=== PATIENT | female | born 1950 | race Caucasian/White ===

== ENCOUNTER → 2018-01-25 | Outpatient (CLI) | payer MEDICARE, BC | LOC: M WUC 09:52 | DX: M25.562 Pain in left knee (principal); Z96.652 Presence of left artificial knee joint | CPT/HCPCS: 73564 ==

== ENCOUNTER → 2018-05-31 | Outpatient (REF) | payer MEDICARE, BC ==
[2018-05-31 20:17] LABS: APPEARANCE, URINE CLOUDY (CLEAR); BACTERIA, URINE AUTO 1+ (NEGATIVE); BILIRUBIN, URINE AUTO NEGATIVE (NEGATIVE); BLOOD, URINE BLOOD NEGATIVE (NEGATIVE); COLOR, URINE YELLOW (YELLOW); GLUCOSE, URINE (UA) AUTO NEGATIVE (NEGATIVE); KETONE, URINE AUTO NEGATIVE (NEGATIVE); LEUKOCYTE ESTERASE, URINE AUTO TRACE (NEGATIVE); MUCUS, URINE SMALL (NEGATIVE); NITRITE, URINE AUTO NEGATIVE (NEGATIVE); PROTEIN, URINE AUTO NEGATIVE (NEGATIVE); RBC, URINE AUTO 3 /HPF (0-3); SPECIFIC GRAVITY URINE AUTO 1.023 (1.002-1.035); SQUAMOUS EPITHELIAL CELL UR AU 20 /HPF (0-6); UROBILINOGEN, URINE AUTO 0.2 mg/dL (0.0-2.0); WBC, URINE AUTO 5 /HPF (0-3)
[2018-05-31 20:27] LABS: ALBUMIN 4.1 GM/DL (3.2-5.2); ALT/SGPT 35 U/L (12-78); BASO % 0.5 % (0.0-1.0); BILIRUBIN,TOTAL 0.5 MG/DL (0.2-1.0); BLOOD UREA NITROGEN 20 MG/DL (7-18); CALCIUM LEVEL 9.6 MG/DL (8.8-10.2); CARBON DIOXIDE LEVEL 31 MEQ/L (21-32); CHLORIDE LEVEL 105 MEQ/L (98-107); CHOLESTEROL LEVEL 228 MG/DL (<200); CHOLESTEROL RISK RATIO 3.454 (<5); CREATININE FOR GFR 0.68 MG/DL (0.55-1.30); EOS # 0.1 10^3/uL (0.0-0.50); EOS % 1.5 % (0.0-3.0); GLOMERULAR FILTRATION RATE > 60.0 (>45); GLUCOSE, FASTING 83 MG/DL (70-100); HDL CHOLESTEROL 66 MG/DL (>40); HEMATOCRIT 47.2 % (36.0-47.0); HEMOGLOBIN 15.3 g/dl (12.0-15.5); LDL CHOLESTEROL 135 MG/DL (<100); LYMPH # 2.1 10^3/uL (1.5-4.5); LYMPH % 24.9 % (24.0-44.0); MEAN CORPUSCULAR HEMOGLOBIN 29.1 pg (27.0-33.0); MEAN CORPUSCULAR HGB CONC 32.4 g/dl (32.0-36.5); MEAN CORPUSCULAR VOLUME 89.9 fl (80.0-96.0); MONO # 0.9 10^3/uL (0.0-0.8); NEUTROPHILS # 5.3 10^3/uL (1.8-7.7); NEUTROPHILS % 62.9 % (36.0-66.0); NON-HDL-C 162 MG/DL; PLATELET COUNT, AUTOMATED 181 10^3/uL (150-450); POTASSIUM SERUM 4.8 MEQ/L (3.5-5.1); RED BLOOD COUNT 5.25 10^6/uL (4.00-5.40); SODIUM LEVEL 142 MEQ/L (136-145); TOTAL PROTEIN 7.4 GM/DL (6.4-8.2); TRIGLYCERIDES LEVEL 137 MG/DL (<150); WHITE BLOOD COUNT 8.5 10^3/uL (4.0-10.0)
[2018-05-31 20:44] LABS: HEMOGLOBIN A1c 5.3 %
== END ==
LOC: M SFHCLERA 12:46
PROVIDERS: ATTEND Family Medicine
DX: I10 Essential (primary) hypertension (principal); M54.31 Sciatica, right side; M06.9 Rheumatoid arthritis, unspecified; Z13.820 Encounter for screening for osteoporosis; Z23 Encounter for immunization
CPT/HCPCS: 80053; 80061; 81001; 83036; 84443; 85025; G0463

== ENCOUNTER → 2018-07-14 | Outpatient (CLI) | payer MEDICARE, BC ==
--- NOTE | 2018-07-15 10:03 | ECHO ---
DATE OF PROCEDURE: 07/14/2018 DATE OF : 1950 AGE: 67 REFERRING PROVIDER: Misha Londono MD REASON FOR THE ECHOCARDIOGRAM: Heart murmur. 2D MEASUREMENTS: IVS: 1.0 cm LV: 4.5 cm LVPW: 1.0 cm LA: 3.4 cm Aorta: 3.2 cm IVC: 1.8 cm DOPPLER MEASUREMENTS: Peak velocity across the aortic valve: 2.0 m/s Peak velocity across the LVOT: 1.0 m/s Peak gradient across the aortic valve: 17 mmHg. Mean gradient across the aortic valve: 9 mmHg Mitral E: 0.84, mitral A: 1.1 with a ratio of 0.8. Maximum tricuspid valve velocity: 2.4 m/s 2D COMMENTS: 1. Normal left ventricular size, wall thickness, and normal global left ventricular systolic function. The estimated left ventricular systolic ejection fraction is 65-70%. 2. Subjectively, the left atrium may be mildly enlarged. Normal right atrium and right ventricle. 3. The atrial septum appeared to be normal without evidence of defect or shunt. 4. Normal aortic root. 5. No pericardial effusion seen. 6. Mildly calcified aortic valve, leaflet excursion appeared to be minimally restricted. Mildly calcified mitral annulus with normal anterior mitral valve leaflet motion. Normal tricuspid valve and pulmonic valve. The proximal pulmonary artery branches were not well visualized. 7. The inferior vena cava was normal in size, central venous pressure is most likely normal. DOPPLER: It detects mild aortic regurgitation, mild mitral regurgitation, mild tricuspid regurgitation, and trace pulmonic regurgitation. The calculated pulmonary artery systolic pressure varies between 30-40 mmHg. Abnormal relaxation pattern noted across the mitral valve leaflets and mitral valve annulus consistent with features of left ventricular diastolic dysfunction, grade 1. IMPRESSION: 1. Normal global left ventricular systolic function. There are some features of left ventricular diastolic dysfunction, impaired relaxation. 2. Aortic valve sclerosis with mild aortic regurgitation and probably mild aortic stenosis. The patient does have a history of bicuspid aortic valve according to her records. 3. Mild tricuspid regurgitation with mitral annulus calcification. Subjectively, the left atrium appeared to be mildly enlarged. 4. Mild tricuspid regurgitation with mild pulmonary hypertension. 5. Trace pulmonic regurgitation.
== END ==
LOC: M CARPUL 09:24
PROVIDERS: ATTEND Family Medicine
DX: I51.7 Cardiomegaly (principal)

== ENCOUNTER → 2018-09-14 | Outpatient (CLI) | payer MEDICARE, BC ==
--- NOTE | 2018-09-14 10:49 | REPMRS ---
Patient History The patient states she has not had a clinical breast exam in over a year. Patient is postmenopausal. Family history of breast cancer under age 50 in maternal grandmother. Digital Woman Screen Mammo: September 14, 2018 - Exam #: [id number] Bilateral CC and MLO view(s) were taken. Technologist: Brisa Kinney Technologist Prior study comparison: November 21, 2015, bilateral digital woman screen mammo, performed at [facility]. FINDINGS: There are scattered fibroglandular densities. There are new coarse benign appearing calcifications in the upper outer quadrant on the right. There is also a grouping of new fine microcalcifications in the upper outer quadrant on the right which merits further evaluation. This is only seen on the craniocaudad projection of the right breast. They are not seen with confidence tomographically. Diagnostic right breast mammography is recommended. There has been no other change in the appearance of the mammogram from the prior studies. There is a mild amount of scattered fibroglandular density which is fairly symmetric. There is no interval development of dominant mass, architectural distortion, or other clustered microcalcification suggestive of malignancy. 3-D tomosynthesis shows no additional findings. Assessment: BI-RADS/ACR category 0 mammogram, Incomplete: Need additional imaging evaluation and/or prior mammograms for comparison. Recommendation Special view mammogram of the right breast. This patient's Lifetime Breast Cancer RIsk is estimated at 7.4 %. This mammogram was interpreted with the aid of an FDA-approved computer-aided dectection system. Electronically Signed By: Warren Salomon MD 09/14/18 [id number]
== END ==
LOC: M WHC 08:12
PROVIDERS: ATTEND Family Medicine
DX: Z12.31 Encounter for screening mammogram for malignant neoplasm of breast (principal); Z78.0 Asymptomatic menopausal state; R92.8 Other abnormal and inconclusive findings on diagnostic imaging of breast

== ENCOUNTER 2018-09-20 12:54 | Outpatient (RCR) | payer MEDICARE, BC | END 2018-09-24 | LOC: M PT 12:54 | PROVIDERS: ATTEND Family Medicine | DX: M54.31 Sciatica, right side (principal) ==

== ENCOUNTER → 2018-09-20 | Outpatient (CLI) | payer MEDICARE, BC ==
--- NOTE | 2018-09-20 16:33 | REP ---
DIGITAL DIAGNOSTIC UNILATERAL RIGHT BREAST MAMMOGRAPHY WITH CAD: HISTORY: Screening mammography September 14, 2018 was BIRADS category 0 because of some new fine microcalcifications visible on the craniocaudad projection. Diagnostic imaging was recommended. Comparison is also made with prior mammography from November 21, 2015 and September 24, 2009. FINDINGS: Magnified focal spot compression craniocaudad view confirms the presence of fine punctate microcalcifications in the right breast laterally. On true mediolateral projection images and MLO mag images, these are seen to be in a small artery superficially located in the superior aspect of the left breast. Given that they appear to be vascular in nature, they are felt to be benign. No other suspicious abnormality. IMPRESSION: BIRADS 2: BI-RADS/ACR category 2 mammogram. Benign Findings. BIRADS category 2 benign findings. Vascular calcifications noted superiorly and laterally in the right breast. Repeat screening mammography recommended in 1 year. This mammogram was interpreted with the aid of an FDA-approved computer-aided detection system. The patient states that she/he has not had a clinical breast exam in over a year. The patient letter being requested is M1. Electronically Signed by Hermilo Salomon MD 09/20/2018 04:32 P
== END ==
LOC: M RAD 11:11
PROVIDERS: ATTEND Family Medicine
DX: R92.8 Other abnormal and inconclusive findings on diagnostic imaging of breast (principal)

== ENCOUNTER 2018-10-13 08:16 | Day surgery (SDC) | payer MEDICARE, BC ==
[~2018-10-13] VITALS: Ht 170.2 cm; Wt 101.1 kg
[~2018-10-13 08:16] MED LIST: CETI-36 PO; CYCL10TA PO; FOLI1TAB11 PO; HYDR200T3 PO; INDE60CA4 PO; LISI-542 PO; NABU-126 PO; NORC1TAB7 PO; NS 1,000 ML IV ONE; VITA-176 PO
[2018-10-13] MEDS ORDERED: LIDOCAINE 2% INJ 100 MG/5 ML SDV (FOR ANES.) As Ordered ONE (09:34)
[2018-10-13] MEDS ORDERED: PROPOFOL 200 MG/20 ML VIAL As Ordered ONE ×2 (09:34→09:35)
--- NOTE | 2018-10-13 09:41 | ROOR ---
Patient Name: Cris Hernandez Procedure Date: 10/13/2018 9:06 AM Date of : 1950 Age: 68 Room: [facility] Gender: Female Note Status: Finalized Procedure: Colonoscopy Indications: Hematochezia, Abnormal CT of the GI tract ("colitis") 2018, Constipation Providers: Rickey STALLINGS MD Referring MD: Misha COLE MD Requesting Provider: Medicines: Monitored Anesthesia Care Complications: No immediate complications. Procedure: Pre-Anesthesia Assessment: - The heart rate, respiratory rate, oxygen saturations, blood pressure, adequacy of pulmonary ventilation, and response to care were monitored throughout the procedure. The Colonoscope was introduced through the anus and advanced to 10 cm into the ileum. The colonoscopy was performed without difficulty. The patient tolerated the procedure well. The quality of the bowel preparation was good. Findings: The perianal and digital rectal examinations were normal. A 4 mm polyp was found in the splenic flexure. The polyp was sessile. The polyp was removed with a cold snare. Resection and retrieval were complete. Mild sigmoid diverticulosis and small internal hemorrhoids. The exam was otherwise normal throughout the examined colon. The terminal ileum appeared normal. The colon (entire examined portion) was mildly redundant. Biopsies were taken with a cold forceps for histology. Impression: - One 4 mm polyp at the splenic flexure, removed with a cold snare. Resected and retrieved. - Mild sigmoid diverticulosis and small internal hemorrhoids. - The colon is otherwise normal. - The examined portion of the ileum was normal. - Biopsies were taken with a cold forceps for histology. Recommendation: - Use Lactulose at 1 - 2 tbsp daily. - Telephone endoscopist for pathology results in 2 weeks. - If the pathology report reveals adenomatous tissue, then repeat the colonoscopy for surveillance in 5 years. Rickey Stallings MD Rickey STALLINGS MD 10/13/2018 9:40:58 AM Electronically signed by Rickey STALLINGS MD Number of Addenda: 0 Note Initiated On: 10/13/2018 9:06 AM Estimated Blood Loss: Estimated blood loss: none.
[2018-10-13 09:58] VITALS: BP 148/69
== END 2018-10-13 10:05 | disposition home or self-care (01) ==
LOC: M OPP 08:16
PROVIDERS: ATTEND Internal Medicine Gastroenterology
DX: D12.3 Benign neoplasm of transverse colon (principal); K92.1 Melena; K59.00 Constipation, unspecified; Q43.8 Other specified congenital malformations of intestine; R93.3 Abnormal findings on diagnostic imaging of other parts of digestive tract; Z79.899 Other long term (current) drug therapy; Z88.0 Allergy status to penicillin

== ENCOUNTER → 2018-10-31 | Outpatient (REF) | payer MEDICARE, BC ==
[~2018-10-31] MED LIST changes: -NS 1,000 ML IV ONE
== END ==
LOC: M SFHCLERA 10:57
PROVIDERS: ATTEND Family Medicine
DX: Z86.39 Personal history of other endocrine, nutritional and metabolic disease (principal)
CPT/HCPCS: 82306; G0463

== ENCOUNTER → 2018-11-14 | Outpatient (CLI) | payer MEDICARE, BC ==
--- NOTE | 2018-11-14 16:35 | REP ---
HISTORY: Hip pain. No trauma. There is mild to moderate asymmetric hip joint space narrowing without buttressing or prominent marginal osteophytosis. There is no acute fracture or dislocation. IMPRESSION: Chronic changes as described above. Electronically Signed by Yoshi Aceves DO 11/14/2018 04:37 P
== END ==
LOC: M LRY 15:10
PROVIDERS: ATTEND Family Medicine
DX: M16.11 Unilateral primary osteoarthritis, right hip (principal); M25.551 Pain in right hip
CPT/HCPCS: 73502; G0463

== ENCOUNTER → 2018-12-20 | Outpatient (REF) | payer MEDICARE, BC ==
[2018-12-20 17:16] LABS: APPEARANCE, URINE HAZY (CLEAR); BACTERIA, URINE AUTO NEGATIVE (NEGATIVE); BILIRUBIN, URINE AUTO NEGATIVE (NEGATIVE); BLOOD, URINE BLOOD NEGATIVE (NEGATIVE); COLOR, URINE YELLOW (YELLOW); GLUCOSE, URINE (UA) AUTO NEGATIVE (NEGATIVE); KETONE, URINE AUTO NEGATIVE (NEGATIVE); LEUKOCYTE ESTERASE, URINE AUTO NEGATIVE (NEGATIVE); MUCUS, URINE SMALL (NEGATIVE); NITRITE, URINE AUTO NEGATIVE (NEGATIVE); PROTEIN, URINE AUTO NEGATIVE (NEGATIVE); RBC, URINE AUTO 3 /HPF (0-3); SPECIFIC GRAVITY URINE AUTO 1.019 (1.002-1.035); SQUAMOUS EPITHELIAL CELL UR AU 4 /HPF (0-6); UROBILINOGEN, URINE AUTO 0.2 mg/dL (0.0-2.0); WBC, URINE AUTO 3 /HPF (0-3)
[2018-12-22 14:22] LABS: HPV HYBRID CAPTURE II Negative (Negative)
== END ==
LOC: M SFHCLERA 13:30
PROVIDERS: ATTEND Family Medicine
DX: Z12.4 Encounter for screening for malignant neoplasm of cervix (principal); N93.9 Abnormal uterine and vaginal bleeding, unspecified; N76.0 Acute vaginitis
CPT/HCPCS: 81001; 87086; 87624; G0123; G0463

== ENCOUNTER → 2018-12-28 | Outpatient (CLI) | payer MEDICARE, BC ==
--- NOTE | 2018-12-28 18:55 | REP ---
Inguinal ultrasound for right inguinal pain: The right inguinal area is evaluated by ultrasound without and with Valsalva. No right inguinal hernia is identified. There are multiple right inguinal lymph nodes. The left inguinal area is evaluated for comparison. With Valsalva, there is a small volume of peritoneal fat herniating the left inguinal canal. Next no lymph nodes are identified on the left. Impression: The there is no inguinal hernia on the right. There are multiple right inguinal lymph nodes. There is a fat-containing left inguinal hernia with Valsalva. Electronically Signed by Misha aGmbino MD 12/28/2018 06:46 P
== END ==
LOC: M RAD 16:49
PROVIDERS: ATTEND Family Medicine
DX: R10.31 Right lower quadrant pain (principal); K40.90 Unilateral inguinal hernia, without obstruction or gangrene, not specified as recurrent

== ENCOUNTER → 2019-01-02 | Outpatient (REF) | payer MEDICARE, BC ==
[2019-01-02 20:41] LABS: BASO % 0.2 % (0.0-1.0); EOS # 0.1 10^3/uL (0.0-0.5); HEMATOCRIT 44.4 % (36.0-47.0); HEMOGLOBIN 14.4 g/dl (12.0-15.5); MEAN CORPUSCULAR HEMOGLOBIN 29.6 pg (27.0-33.0); MEAN CORPUSCULAR HGB CONC 32.4 g/dl (32.0-36.5); MEAN CORPUSCULAR VOLUME 91.4 fl (80.0-96.0); MONO # 0.9 10^3/uL (0.0-0.8); MONO % 10.6 % (0.0-5.0); NEUTROPHILS # 4.6 10^3/uL (1.5-8.5); NEUTROPHILS % 52.7 % (36.0-66.0); PLATELET COUNT, AUTOMATED 174 10^3/uL (150-450); RED BLOOD COUNT 4.86 10^6/uL (4.00-5.40); WHITE BLOOD COUNT 8.7 10^3/uL (4.0-10.0)
== END ==
LOC: M SFHCLERA 15:54
PROVIDERS: ATTEND Family Medicine
DX: R59.0 Localized enlarged lymph nodes (principal)
CPT/HCPCS: 85025; G0463

== ENCOUNTER → 2019-01-09 | Outpatient (REF) | payer MEDICARE, BC ==
[2019-01-09 17:21] LABS: BLOOD UREA NITROGEN 20 MG/DL (7-18); C REACTIVE PROTEIN QUANTITATIV 0.61 MG/DL (0.00-0.30); CREATININE FOR GFR 0.57 MG/DL (0.55-1.30); GLOMERULAR FILTRATION RATE > 60.0 (>45)
== END ==
LOC: M LABDRAW1 14:43
PROVIDERS: ATTEND Physician Assistant
DX: M47.817 Spondylosis without myelopathy or radiculopathy, lumbosacral region (principal)

== ENCOUNTER → 2019-01-26 | Outpatient (CLI) | payer MEDICARE, BC ==
--- NOTE | 2019-01-26 15:30 | REP ---
Clinical: Pelvic pain and inguinal adenopathy. Technique: Transabdominal pelvic ultrasound followed by transvaginal examination for better evaluation of the endometrium and adnexa with color Doppler evaluation of the ovaries. Findings: Bladder is normal and measures 12.9 x 7.8 x 8.9 cm. Normal anteverted uterus measures 8.4 x 3.4 x 5.9 cm. Endometrial complex measures 7.2 mm thickness. No discrete uterine or endometrial abnormalities appreciated. Right ovary is normal in appearance and vascularity without torsion and measures 1.6 x 2.2 x 1.6 cm (RI 0.30). Left ovary is not definitively appreciated. No pelvic fluid or adnexal mass lesion. Impression: 1. Mildly thickened endometrial complex without discrete uterine or endometrial abnormality appreciated. 2. Normal right ovary. Left ovary not visualized. 3. No obvious abnormality identified. Electronically Signed by Fili Hatch MD 01/26/2019 03:21 P
== END ==
LOC: M LRY 13:54
PROVIDERS: ATTEND Family Medicine
DX: R59.0 Localized enlarged lymph nodes (principal)

== ENCOUNTER → 2019-04-10 | Outpatient (REF) | payer MEDICARE, BC ==
[2019-04-10 20:49] LABS: BASO # 0.1 10^3/uL (0.0-0.2); BASO % 0.8 % (0.0-1.0); EOS # 0.2 10^3/uL (0.0-0.5); EOS % 2.5 % (0.0-3.0); HEMATOCRIT 43.5 % (36.0-47.0); HEMOGLOBIN 13.9 g/dl (12.0-15.5); LYMPH # 1.8 10^3/uL (1.5-5.0); LYMPH % 28.2 % (24.0-44.0); MONO # 0.6 10^3/uL (0.0-0.8); MONO % 9.9 % (0.0-5.0); NEUTROPHILS # 3.7 10^3/uL (1.5-8.5); NEUTROPHILS % 58.4 % (36.0-66.0); PLATELET COUNT, AUTOMATED 165 10^3/uL (150-450); RED BLOOD COUNT 4.63 10^6/uL (4.00-5.40); WHITE BLOOD COUNT 6.4 10^3/uL (4.0-10.0)
[2019-04-10 20:58] LABS: BLOOD UREA NITROGEN 24 MG/DL (7-18); CARBON DIOXIDE LEVEL 32 MEQ/L (21-32); CHLORIDE LEVEL 104 MEQ/L (98-107); CHOLESTEROL LEVEL 228 MG/DL (<200); CHOLESTEROL RISK RATIO 2.814 (<5); CREATININE FOR GFR 0.75 MG/DL (0.55-1.30); GLOMERULAR FILTRATION RATE > 60.0 (>45); GLUCOSE, FASTING 74 MG/DL (70-100); HDL CHOLESTEROL 81 MG/DL (>40); LDL CHOLESTEROL 125 MG/DL (<100); NON-HDL-C 147 MG/DL; POTASSIUM SERUM 4.1 MEQ/L (3.5-5.1); SODIUM LEVEL 141 MEQ/L (136-145); TRIGLYCERIDES LEVEL 111 MG/DL (<150)
[2019-04-10 21:06] LABS: INR 1.01
[2019-04-10 21:07] LABS: PARTIAL THROMBOPLASTIN TIME 29.4 SECONDS (25.0-38.4)
== END ==
LOC: M SFHCLERA 16:59
PROVIDERS: ATTEND Family Medicine
DX: I10 Essential (primary) hypertension (principal); Q23.1 Congenital insufficiency of aortic valve
CPT/HCPCS: 80048; 80061; 85025; 85610; 85730; G0463

== ENCOUNTER → 2019-05-01 | Outpatient (CLI) | payer MEDICARE, BC ==
[2019-05-01 16:40] LABS: BLOOD UREA NITROGEN 26 MG/DL (7-18); CREATININE FOR GFR 0.63 MG/DL (0.55-1.30); GLOMERULAR FILTRATION RATE > 60.0 (>45)
== END ==
LOC: M LAB 15:10
PROVIDERS: ATTEND Surgery Vascular Surgery
DX: Z01.818 Encounter for other preprocedural examination (principal); Z79.899 Other long term (current) drug therapy
CPT/HCPCS: 36415; 82565; 84520; G0463

== ENCOUNTER → 2019-05-09 | Outpatient (CLI) | payer MEDICARE, BC ==
[~2019-05-09] MED LIST changes: +ISOVUE-370 76% 100ML VIAL (Q9967) As Ordered ONE
--- NOTE | 2019-05-09 14:23 | REP ---
Clinical: Atherosclerotic disease. Technique: Contrast enhanced angiographic CTA of the thoracic aorta using 100 ml Isovue 370 intravenous contrast material. Multiplanar re-formations obtained. Findings: The thoracic aorta is normal in caliber and appearance without evidence for thoracic aortic aneurysm or dissection and no significant atherosclerotic disease. The associated major branch vessels of the aortic arch are normal. Main pulmonary arteries appear normal. Heart and pericardium are unremarkable. No pericardial effusion. Mild atherosclerotic changes to the coronary arteries cannot be excluded. No mediastinal or hilar adenopathy. Bilateral lung doe are relatively clear. Small calcified granuloma in the right upper lobe noted. Surrounding musculoskeletal structures demonstrate age-related changes without acute focal abnormality. Impression: 1. Normal appearance to the thoracic aorta and major branch vessels through the aortic arch. No aneurysm or dissection. No significant atherosclerotic changes. 2. Atherosclerotic changes to the coronary arteries cannot definitively be excluded based on current examination. Electronically Signed by Fili Hatch MD 05/09/2019 02:15 P
--- NOTE | 2019-05-09 14:34 | REP ---
Clinical: Peripheral vascular disease. Technique: Standard CTA examination of the abdomen through bilateral lower extremities using 100 ml Isovue 370 intravenous contrast material with multiplanar MIP re-formations and reconstructions including volume rendered 3-D MIP angiograms of the lower extremities. Findings: The abdominal aorta is normal in appearance without aneurysm or dissection and no significant atherosclerotic disease. The associated branch vessels of the abdominal aorta including celiac axis, superior mesenteric artery, solitary bilateral renal arteries, and inferior mesenteric artery are all normal in appearance. The aorta bifurcates to normal bilateral iliac arteries and the bilateral lower extremity arteries are all symmetric and patent with three-vessel runoff through the bilateral lower extremities to the level of the ankles. Liver, spleen, pancreas, bilateral adrenal glands and kidneys are normal for arterial angiographic phase evaluation. Cholelithiasis noted without evidence for acute cholecystitis. The enteric system is unremarkable. Scattered sigmoid diverticula noted without acute diverticulitis. Pelvis demonstrates normal appearing bladder and age-appropriate uterus/adnexa. No ascites. No adenopathy. No free air. Musculoskeletal structures demonstrate age-related degenerative changes without acute focal abnormality. Impression: 1. No evidence for atherosclerotic disease and no evidence for peripheral vascular disease. The aorta and branch vessels as well as the arterial vessels to the bilateral lower extremities appear patent and normal. 2. Cholelithiasis without acute cholecystitis. 3. Scattered sigmoid diverticula without acute diverticulitis. Electronically Signed by Fili Hatch MD 05/09/2019 02:26 P
== END ==
LOC: M RAD 09:34
PROVIDERS: ATTEND Surgery Vascular Surgery
DX: I73.9 Peripheral vascular disease, unspecified (principal)
CPT/HCPCS: 71275; 75635; Q9967

== ENCOUNTER → 2019-09-06 | Outpatient (CLI) | payer MEDICARE, BC ==
[~2019-09-06] MED LIST changes: +CYCL-707 PO; -CYCL10TA PO; -ISOVUE-370 76% 100ML VIAL (Q9967) As Ordered ONE
--- NOTE | 2019-09-06 15:07 | REP ---
REASON FOR EXAM: Hyperemia and erythema with varying degrees of ecchymosis. RIGHT: The ankle brachial index is 1.0. COCOA BEAN ROASTER 127 cm/s Triphasic Profunda 64 cm/s Triphasic SFA proximal 84 cm/s Triphasic SFA mid 67 cm/s Triphasic SFA distal 65 cm/s Triphasic Popliteal 87 cm/s Triphasic AMADOU proximal 50 cm/s Triphasic Tibioperoneal Trunk 57 cm/s Triphasic CLINICAL NURSING ASSISTANT proximal 38 cm/s Triphasic CLINICAL NURSING ASSISTANT distal 61 cm/s Triphasic AMADOU distal 71 cm/s Triphasic LEFT: The ankle brachial index is 1.0. COCOA BEAN ROASTER 88 cm/s Triphasic Profunda 59 cm/s Triphasic SFA proximal 100 cm/s Triphasic SFA mid 72 cm/s Triphasic SFA distal 70 cm/s Triphasic Popliteal 71 cm/s Triphasic AMADOU proximal 64 cm/s Triphasic Tibioperoneal Trunk 48 cm/s Triphasic CLINICAL NURSING ASSISTANT proximal 42 cm/s Triphasic CLINICAL NURSING ASSISTANT distal 72 cm/s Triphasic AMADOU distal 76 cm/s Triphasic The technologist noted minimal intimal thickening throughout. There is no significant stenosis. Electronically Signed by Yoshi Aceves DO 09/06/2019 05:05 P
== END ==
LOC: M RAD 11:47
PROVIDERS: ATTEND Physician Assistant
DX: R09.89 Other specified symptoms and signs involving the circulatory and respiratory systems (principal); I75.023 Atheroembolism of bilateral lower extremities

== ENCOUNTER → 2019-11-20 | Outpatient (REF) | payer MEDICARE, BC ==
[~2019-11-20] MED LIST changes: -NABU-126 PO; +NABU-51 PO
[2019-11-20 17:05] LABS: BASO # 0.1 10^3/uL (0.0-0.2); BASO % 0.6 % (0.0-1.0); EOS # 0.2 10^3/uL (0.0-0.5); EOS % 2.5 % (0.0-3.0); HEMATOCRIT 45.8 % (36.0-47.0); HEMOGLOBIN 15.3 g/dl (12.0-15.5); LYMPH # 2.9 10^3/uL (1.5-5.0); LYMPH % 34.7 % (24.0-44.0); MEAN CORPUSCULAR HEMOGLOBIN 30.3 pg (27.0-33.0); MEAN CORPUSCULAR HGB CONC 33.4 g/dl (32.0-36.5); MEAN CORPUSCULAR VOLUME 90.7 fl (80.0-96.0); MONO # 0.9 10^3/uL (0.0-0.8); MONO % 10.4 % (0.0-5.0); NEUTROPHILS # 4.3 10^3/uL (1.5-8.5); NEUTROPHILS % 51.4 % (36.0-66.0); PLATELET COUNT, AUTOMATED 169 10^3/uL (150-450); RED BLOOD COUNT 5.05 10^6/uL (4.00-5.40); WHITE BLOOD COUNT 8.4 10^3/uL (4.0-10.0)
[2019-11-20 17:22] LABS: BLOOD UREA NITROGEN 22 MG/DL (7-18); CALCIUM LEVEL 10.2 MG/DL (8.8-10.2); CARBON DIOXIDE LEVEL 36 MEQ/L (21-32); CHLORIDE LEVEL 103 MEQ/L (98-107); GLOMERULAR FILTRATION RATE > 60.0 (>45); GLUCOSE, FASTING 89 MG/DL (70-100); POTASSIUM SERUM 4.9 MEQ/L (3.5-5.1); SODIUM LEVEL 138 MEQ/L (136-145)
== END ==
LOC: M SFHCLERA 13:40
PROVIDERS: ATTEND Family Medicine
DX: Z01.818 Encounter for other preprocedural examination (principal); Z79.899 Other long term (current) drug therapy

== ENCOUNTER → 2020-04-02 | Outpatient (CLI) | payer MEDICARE, BC ==
--- NOTE | 2020-04-02 15:39 | REP ---
INDICATION: ATHEROEMBOLISM OF GABE LEGS COMPARISON: 09/06/2019. TECHNIQUE: Real time acevedo scale and Duplex Doppler evaluation of the bilateral lower extremity arterial vasculature using linear high frequency transducer. FINDINGS: Acevedo scale and duplex doppler images demonstrate mild to moderate amounts of atheromatous plaquing with areas of minimal narrowing but no focal stenosis identified. Doppler interrogation demonstrates normal arterial wave forms and velocities bilaterally. Peak systolic velocities (cm/sec) Common femoral artery: Right 91; Left 102 Profunda femoris: Right 121; Left 64 SFA (proximal): Right 131; Left 109 SFA (mid): Right 82; Left 86 SFA (distal): Right 77; Left 93 Popliteal artery: Right 98; Left 90 AMADOU (prox.): Right 65; Left 59 Tibioperoneal trunk: Right 47; Left 52 COMPENSATOR (prox.): Right 43; Left 58 COMPENSATOR (distal): Right 72; Left 46 AMADOU (distal): Right 54; Left 53 ANMOL right 1.17 and left 1.21. Triphasic and biphasic waveforms are seen diffusely bilaterally. IMPRESSION: Atheromatous changes with areas of narrowing but no obvious focal occlusion or stenosis. <Electronically signed by Misha Acevedo > 04/02/20 [id number]
== END ==
LOC: M RAD 13:13
PROVIDERS: ATTEND Physician Assistant
DX: I75.023 Atheroembolism of bilateral lower extremities (principal)